=== PATIENT | female | born 1965 | race Caucasian/White ===

== ENCOUNTER 2018-01-04 18:19 | Emergency (ER) | payer OTHER, MEDICAID ==
[~2018-01-04] VITALS: Ht 154.9 cm; Wt 61.2 kg
[~2018-01-04 18:19] MED LIST: CIPRO500 MG PO; CYMBALTA20 MG PO; METFORMIN HCL500 MG PO; NORCO 5-325 TA1 EACH PO; SERTRALINE HCL50 MG PO; TRILEPTAL150 MG PO
[2018-01-04 19:01] LABS: HEMATOCRIT 36.7 % (37.0-47.0); HEMOGLOBIN 12.4 gm/dL (12.0-15.0); MCH 31.4 pg (26.0-34.0); MCHC 33.8 g/dL (28.0-37.0); MCV 92.6 fL (80.0-100.0); MPV 7.9 fl. (7.2-11.1); NUCLEATED RBCS 0 /100WBC; PLATELET COUNT* 288 thou/uL (150-400); RBC 3.96 mil/uL (4.20-5.00); RDW-CV 13.1 % (10.5-14.5); WBC 13.4 thou/uL (4.0-11.0)
[2018-01-04 19:19] LABS: CALCIUM 9.1 mg/dL (8.5-10.1); CREATININE 0.5 mg/dL (0.6-1.3)
[2018-01-04 19:21] LABS: ABSOLUTE LYMPHOCYTES 1.5 thou/uL (0.8-5.3); ABSOLUTE MONOCYTES 1.1 thou/uL (0.0-1.2); ABSOLUTE NEUTROPHILS 10.9 thou/uL (1.6-8.1); ATYPICAL LYMPHS 2 %; PLATELET ESTIMATE ADEQUATE
[2018-01-04 19:24] LABS: ALBUMIN 2.6 g/dL (3.4-5.0); TOTAL BILIRUBIN 0.3 mg/dL (<0.1-1.0)
[2018-01-04 20:28] LABS: URINE BILIRUBIN NEGATIVE (Negative); URINE BLOOD 2+ (Negative); URINE COLOR YELLOW; URINE GLUCOSE-RANDOM NEGATIVE (Negative); URINE KETONES NEGATIVE (Negative); URINE LEUKOCYTES-REFLEX NEGATIVE (Negative); URINE NITRITE-REFLEX NEGATIVE (Negative); URINE PROTEIN 1+ (Negative); URINE SPECIFIC GRAVITY >= 1.030 (1.005-1.030)
[2018-01-04 20:30] LABS: URINE CLARITY HAZY
[2018-01-04 20:32] LABS: AMP/METHAMP POSITIVE (Negative); BARBITURATES Negative (Negative); BENZODIAZEPINES POSITIVE (Negative); COCAINE Negative (Negative); METHADONE Negative (Negative); OPIATES POSITIVE (Negative); PCP Negative (Negative); THC POSITIVE (Negative)
[2018-01-04 20:37] LABS: BACTERIA-REFLEX >30 Many /HPF (None Seen); SQUAMOUS 0-3 Few /LPF (0-3); URINE RBC 0-2 Rare /HPF (0-2); URINE WBC-REFLEX 0-5 Rare /HPF (0-5)
[2018-01-04 20:38] LABS: CASTS None Seen /LPF (None Seen); CRYSTALS None Seen /LPF (None Seen)
[2018-01-04] MEDS ORDERED: ACETAMINOPHEN500 M1 PO (20:39)
[2018-01-04] MEDS ORDERED: BACTRIM DS TAB1 EACH PO (20:39)
[2018-01-04 20:57] VITALS: BP 135/66
== END 2018-01-04 20:59 | disposition home or self-care (01) ==
LOC: M.ERS 18:19
PROVIDERS: Physician Assistant
DX: N39.0 Urinary tract infection, site not specified (principal); E11.9 Type 2 diabetes mellitus without complications; J45.909 Unspecified asthma, uncomplicated; G43.909 Migraine, unspecified, not intractable, without status migrainosus; G25.81 Restless legs syndrome; M81.0 Age-related osteoporosis without current pathological fracture; F32.9 Major depressive disorder, single episode, unspecified; F41.9 Anxiety disorder, unspecified; F20.9 Schizophrenia, unspecified; F17.200 Nicotine dependence, unspecified, uncomplicated; Z88.8 Allergy status to other drugs, medicaments and biological substances; Z88.0 Allergy status to penicillin